=== PATIENT | female | born 1955 ===

== ENCOUNTER 2023-04-23 12:23 | Inpatient (IN) | payer OTHER ==
[~2023-04-23] VITALS: Ht 167.6 cm; Wt 83.1 kg
[2023-04-23 12:29] VITALS: BP 109/50
[2023-04-23 13:14] LABS: BASO % 0.4 % (0.0-1.0); EOS # 0.1 10*3/uL (0.0-0.4); EOS % 1.1 % (1.0-4.0); HEMATOCRIT 42.3 % (37.0-47.0); LYMPH # 0.9 10*3/uL (1.3-4.4); MEAN CELL VOLUME 87.9 fl (81.0-99.0); MEAN CORPUSCULAR HGB 28.5 pg (27.0-31.0); MEAN CORPUSCULAR HGB CONC 32.4 g/dl (33.0-37.0); MEAN PLATELET VOLUME 9.8 fl (9.6-12.3); MONO # 0.5 10*3/uL (0.1-1.0); MONO % 6.6 % (3.0-9.0); NEUT # 6.1 10*3/uL (2.3-7.9); NEUT % 79.5 % (47.0-73.0); PLATELET COUNT AUTOMATED 236 10*3/uL (130-400); RED BLOOD COUNT 4.81 10*6/uL (4.10-5.10); RED CELL DISTRI WIDTH 12.6 % (0-14.5); WHITE BLOOD COUNT 7.6 10*3/uL (4.8-10.8)
[2023-04-23 13:24] LABS: ACT PARTIAL THROMBO TIME 23.3 SECONDS (20.0-32.1)
[2023-04-23 13:40] LABS: ALKALINE PHOSPHATASE 127 U/L (46-116); BUN 13 mg/dl (9-23); CHLORIDE 104 mmol/L (98-107); LIPASE 39 U/L (12-53); POTASSIUM 3.3 mmol/L (3.4-5.1); SGPT/ALT 19 U/L (5-49); TOTAL PROTEIN 7.1 gm/dL (6.0-8.0)
[2023-04-23 14:46] LABS: BILIRUBIN Negative (Negative); BLOOD Negative (Negative); CLARITY Clear (Clear); COLOR Yellow (Yellow); GLUCOSE 3+ (Negative); KETONE Trace (Negative); LEUKO ESTERASE 1+ (Negative); NITRITE Negative (Negative)
[2023-04-23 15:03] LABS: BACTERIA 1+; CALCIUM OXALATE CRYSTALS 1+; MUCOUS 2+
[2023-04-23] MEDS ORDERED: LANTUS SOL100 UNIT/1 SC (16:19)
[2023-04-23] MEDS ORDERED: TOPROL XL50 M1 PO (16:19)
[2023-04-23] MEDS ORDERED: ASPIRIN CHEWABL81 MG PO (16:20)
[2023-04-23] MEDS ORDERED: PLAVIX75 M1 PO (16:20)
[2023-04-23] MEDS ORDERED: HUMALOG100 UNIT/1 SC (16:20)
[2023-04-23] MEDS ORDERED: LIPITOR40 MG PO (16:21)
[2023-04-23] MEDS ORDERED: PROTONIX40 MG PO (16:21)
[2023-04-23] MEDS ORDERED: TRULICITY3 MG/0.5 M SQ (16:23)
[2023-04-23 16:30] VITALS: BP 126/72
[2023-04-23 19:59] VITALS: BP 156/81
[2023-04-24 03:48] LABS: BASO # 0.1 10*3/uL (0.0-0.1); BASO % 0.6 % (0.0-1.0); EOS # 0.2 10*3/uL (0.0-0.4); EOS % 2.6 % (1.0-4.0); HEMATOCRIT 43.6 % (37.0-47.0); LYMPH # 1.9 10*3/uL (1.3-4.4); LYMPH % 23.8 % (27.0-41.0); MEAN CELL VOLUME 86.5 fl (81.0-99.0); MEAN CORPUSCULAR HGB 28.8 pg (27.0-31.0); MEAN CORPUSCULAR HGB CONC 33.3 g/dl (33.0-37.0); MEAN PLATELET VOLUME 9.8 fl (9.6-12.3); MONO # 0.7 10*3/uL (0.1-1.0); MONO % 8.5 % (3.0-9.0); NEUT # 5.1 10*3/uL (2.3-7.9); NEUT % 64.2 % (47.0-73.0); PLATELET COUNT AUTOMATED 260 10*3/uL (130-400); RED BLOOD COUNT 5.04 10*6/uL (4.10-5.10)
[2023-04-24 04:13] LABS: ALKALINE PHOSPHATASE 108 U/L (46-116); BUN 13 mg/dl (9-23); CHLORIDE 107 mmol/L (98-107); CHOLESTEROL 128 mg/dL (<200); FREE T4 1.36 ng/dl (0.89-1.76); LDL CHOLESTEROL 53 mg/dL (9-159); POTASSIUM 3.7 mmol/L (3.4-5.1); SGPT/ALT 17 U/L (5-49); TOTAL PROTEIN 6.6 gm/dL (6.0-8.0); TRIGLYCERIDES 139 mg/dl (<150)
[2023-04-24 07:05] VITALS: BP 137/77
[2023-04-24 13:17] LABS: URINE AMPHETAMINES Negative (1000ng/ml); URINE BARBITURATES Negative (200ng/ml); URINE BENZODIAZEPINES Negative (200ng/ml); URINE CANNABINOIDS (THC) Negative (50ng/ml); URINE COCAINE Negative (300ng/ml); URINE METHADONE Negative (300ng/ml); URINE OPIATES Negative (300ng/ml); URINE PHENCYCLIDINE Negative (25ng/ml)
[2023-04-24 14:08] VITALS: BP 132/57
[2023-04-24] MEDS ORDERED: ASPIRIN CHILDRE81 MG PO (14:55)
[2023-04-24 15:36] VITALS: BP 128/89
== END 2023-04-24 16:00 | disposition home or self-care (01) | DRG 69 ==
LOC: ED 12:23 → EDHOLD 16:21 → 4E 04-24 14:53
PROVIDERS: Emergency Medicine; Family Medicine; Student in an Organized Health Care Education/Training Program; ADMIT Student in an Organized Health Care Education/Training Program; ATTEND Student in an Organized Health Care Education/Training Program
DX: G45.9 Transient cerebral ischemic attack, unspecified (principal); I10 Essential (primary) hypertension; K21.9 Gastro-esophageal reflux disease without esophagitis; E78.5 Hyperlipidemia, unspecified; E11.65 Type 2 diabetes mellitus with hyperglycemia; E87.6 Hypokalemia; Z90.710 Acquired absence of both cervix and uterus; Z80.3 Family history of malignant neoplasm of breast; Z79.4 Long term (current) use of insulin